=== PATIENT | male | born 1990 | race Caucasian/White ===

== ENCOUNTER 2016-08-18 13:50 | Emergency (ER) | payer OTHER | END 2016-08-18 15:10 | disposition home or self-care (01) | LOC: ER1 13:50 | DX: S93.492A Sprain of other ligament of left ankle, initial encounter (principal); X50.1XXA Overexertion from prolonged static or awkward postures, initial encounter; Y92.830 Public park as the place of occurrence of the external cause | CPT/HCPCS: 73610; 99283 ==

== ENCOUNTER 2020-07-23 12:15 | Emergency (ER) | payer BC, OTHER ==
[2020-07-23 13:12] LABS: HEMOGLOBIN 14.2 gm/dl (14.0-17.5); RED BLOOD COUNT 4.91 M/UL (4.20-5.50); WHITE BLOOD COUNT 7.2 K/UL (4.5-11.0)
[2020-07-23 13:30] LABS: BUN/CREATININE RATIO 15 (0-10)
== END 2020-07-23 15:33 | disposition home or self-care (01) ==
LOC: ER1 12:15
PROVIDERS: Physician Assistant Medical
DX: R55 Syncope and collapse (principal); F17.290 Nicotine dependence, other tobacco product, uncomplicated
CPT/HCPCS: 36415; 70450; 71045; 80053; 80307; 81001; 82550; 82553; 83874; 84484; 85025; 85379; 93005; 96374; 99285; J2405; J7030

== ENCOUNTER 2020-09-18 21:12 | Emergency (ER) | payer BC, OTHER ==
[2020-09-18] MEDS ORDERED: LODINE CAP 300300 MG PO (22:04)
[2020-09-18] MEDS ORDERED: PENVEE K 500 M500 MG PO (22:04)
== END 2020-09-18 22:16 | disposition home or self-care (01) ==
LOC: ER1 21:12
DX: K03.81 Cracked tooth (principal)
CPT/HCPCS: 99282

== ENCOUNTER 2021-07-01 14:21 | Emergency (ER) | payer BC ==
[~2021-07-01 14:21] MED LIST: LODINE CAP 300300 MG PO; PENVEE K 500 M500 MG PO
[2021-07-01 17:28] LABS: HEMOGLOBIN 14.5 gm/dl (14.0-17.5); RED BLOOD COUNT 4.98 M/UL (4.20-5.50); WHITE BLOOD COUNT 3.4 K/UL (4.5-11.0)
[2021-07-01 17:52] LABS: BUN/CREATININE RATIO 19 (0-10)
[2021-07-01] MEDS ORDERED: KEPPRA1000 MG PO (19:32)
== END 2021-07-01 20:16 | disposition home or self-care (01) ==
LOC: ER1 14:21
PROVIDERS: Physician Assistant
DX: G40.909 Epilepsy, unspecified, not intractable, without status epilepticus (principal)
CPT/HCPCS: 80053; 80307; 81001; 85025; 96374; 99284; G0480; J1953